=== PATIENT | female | born 1985 | race Two or more races ===

== ENCOUNTER 2018-08-17 20:32 | Emergency (ER) | payer MEDICAID ==
[~2018-08-17] VITALS: Ht 154.9 cm; Wt 69.4 kg
[~2018-08-17 20:32] MED LIST: NOR10T
[2018-08-17 21:33] VITALS: BP 142/99
== END 2018-08-18 05:00 | disposition left against medical advice (07) ==
LOC: ER 20:32
DX: R07.89 Other chest pain (principal); M25.512 Pain in left shoulder; M25.511 Pain in right shoulder; R51 Headache; Z53.21 Procedure and treatment not carried out due to patient leaving prior to being seen by health care provider; V49.9XXA Car occupant (driver) (passenger) injured in unspecified traffic accident, initial encounter; Y93.89 Activity, other specified; Y92.89 Other specified places as the place of occurrence of the external cause; Y99.8 Other external cause status
CPT/HCPCS: 70450; 71045; 72125; 73090

== ENCOUNTER 2018-08-18 10:34 | Emergency (ER) | payer MEDICAID ==
[~2018-08-18] VITALS: Ht 154.9 cm; Wt 72.6 kg
[2018-08-18 13:48] VITALS: BP 140/70
[2018-08-18] MEDS ORDERED: IBUPROFEN 600 MG TAB PO ONE (14:00)
== END 2018-08-18 14:04 | disposition home or self-care (01) ==
LOC: ER 10:34
DX: G89.11 Acute pain due to trauma (principal); M25.512 Pain in left shoulder; R07.89 Other chest pain; M79.602 Pain in left arm; V43.52XA Car driver injured in collision with other type car in traffic accident, initial encounter; Y93.89 Activity, other specified; Y99.8 Other external cause status; Y92.410 Unspecified street and highway as the place of occurrence of the external cause

== ENCOUNTER 2019-01-20 01:38 | Emergency (ER) | payer MEDICAID ==
[~2019-01-20] VITALS: Ht 154.9 cm; Wt 77.1 kg
[2019-01-20 03:03] LABS: Basophils # (auto) 0.1 uL; Eosinophils # (auto) 0.1 uL; Hemoglobin 12.4 g/dL (12.2-16.2); Lymphocytes # (auto) 1.5 uL; Monocytes # (auto) 1.3 uL
[2019-01-20 03:04] LABS: Basophils % (auto) 0.5 % (0.0-2.0); Eosinophils % (auto) 0.5 % (0.0-7.0); Lymphocytes % (auto) 9.2 % (10.0-50.0); Mean Corpuscular Hgb Conc. 31.7 g/dL (32.0-36.0); Neutrophils # (auto) 13.2 uL; Neutrophils % (auto) 81.8 % (37.0-80.0); Nucleated Red Blood Cells % 0.1 %; Platelet Count (auto) 228 10^3/uL (140-450); Red Blood Cells 4.76 10^6/uL (4.0-5.20); Red Cell Distribution Width 16.7 % (11.8-14.3); White Blood Cell 16.1 10^3/uL (4.4-10.8)
[2019-01-20 03:19] LABS: Partial Thromboplastin Time 26.2 sec (23.78-33.04); Prothrombin Time 10.7 sec (9.27-12.13)
[2019-01-20 03:22] LABS: Albumin 3.7 g/dL (3.4-5.0); BUN/Creatinine Ratio 14.1; Calcium 8.2 mg/dL (8.5-10.1); Potassium 3.1 mmol/L (3.5-5.1)
[2019-01-20 03:24] LABS: Bilirubin, Total 0.2 mg/dL (0.2-1.0); Total Protein 6.9 g/dL (6.4-8.2)
[2019-01-20] MEDS: SODIUM CHLORIDE 0.9% 1,000 ML IVB ONE (07:47)
[2019-01-20 11:13] VITALS: BP 106/72
== END 2019-01-20 12:34 | disposition home or self-care (01) ==
LOC: EDBD 01:38 → ER 01:44
DX: N39.0 Urinary tract infection, site not specified (principal); R11.10 Vomiting, unspecified
CPT/HCPCS: 36415; 76830; 76856; 80053; 81002; 81025; 84702; 85025; 85610; 85730; 86850; 86900; 86901; 94761; 96360; 99284; J7030; 96361

== ENCOUNTER 2019-07-11 09:14 | Emergency (ER) | payer MEDICAID ==
[~2019-07-11] VITALS: Ht 154.9 cm; Wt 64.9 kg
[2019-07-11 09:53] VITALS: BP 120/65
== END 2019-07-11 10:24 | disposition left against medical advice (07) ==
LOC: EDBD 09:14 → ER 09:14
DX: R07.89 Other chest pain (principal); Z53.21 Procedure and treatment not carried out due to patient leaving prior to being seen by health care provider; V43.52XA Car driver injured in collision with other type car in traffic accident, initial encounter; Y93.89 Activity, other specified; Y99.8 Other external cause status; Y92.89 Other specified places as the place of occurrence of the external cause
CPT/HCPCS: 71046; 72040

== ENCOUNTER 2025-06-25 18:23 | Emergency (ER) | payer MEDICAID ==
[~2025-06-25] VITALS: Ht 160 cm; Wt 69.2 kg
[~2025-06-25 18:23] MED LIST changes: +NITR-87 PO; -NOR10T
[2025-06-25 18:25] VITALS: BP 144/91; PULSE 98; RESP 16; TEMP 98.4; O2SAT 98
--- NOTE | 2025-06-25 19:40 | DVH ---
CLINICAL INDICATION: injury/pain TECHNIQUE: 3 radiographic views of the right knee were obtained. Comparison: None FINDINGS/IMPRESSION: Appears to be a 3.6 cm ill-defined soft tissue mass in the anterior soft tissues distal femur correla te for palpable abnormality. Consider CT or MRI for further evaluation. Soft tissue swelling is anterior distal femur. No fractures or dislocations.
--- NOTE | 2025-06-25 21:21 | DVH ---
INDICATION: 3.6 cm ill-defined soft tissue mass anterior FEMUR COMPARISON: XY R KNEE 3V XRAY on DOS: 06/25/25 TECHNIQUE: CT of the right was performed without contrast. Volume transverse images were obtained and reconstructed in multiple planes using bone and soft tissue algorithms. CONTRAST: None Radiation Dose Information: CT Dose: CTDI volume is 15.07 mGy. Dose-length product is 888.62 mGy*cm FINDINGS: The alignment is normal. The joint spaces are normal. There is no fracture, dislocation, or focal osseous lesions. No bony abnormalities in the femur. No soft tissue mass. No soft tissue abnormalities to correlate with finding on the left knee x-ray d one same day. No soft tissue mass noted in the quadriceps muscle. IMPRESSION: 1. No soft tissue mass noted in the quadriceps muscle. 2. No soft tissue abnormalities to correlate with finding on the left knee x-ray done same day. 3. No bony abnormalities in the femur. 4. If palpable masses present recommend MRI. 5. Consider repeat AP and lateral right knee to exclude artifact accounting for findings on right kne e x-ray done earlier same day.
--- NOTE | 2025-06-25 21:38 | ED.PDOC ---
Back pain HPI HPI Comments PT PRESENTS TO ER WITH CC OF RIGHT KNEE LACERATION/ PAIN 05/31. PT STATES SHE WAS SLEEPING ON COUCH AND FELL ONTO BROKEN GLASS. NO GLASS NOTED TO WOUND, CMST INTACT. Chief Complaint: Lower Extremity Time Seen by MD: 18:42 Primary Care Provider: NONE Reviewed Notes: Nurses Notes, Medications, Allergies Allergies: Coded Allergies: NO KNOWN ALLERGIES (Unverified , 01/20/19) Home Meds Active Scripts Nitrofurantoin Monohydrate Mac (Macrobid) 100 Mg Cap, 100 MG PO 100 for 5 Days, #10 MG Prov:ZACHARY DEAL MD 11/02/19 Information Source: Patient Mode of Arrival: Ambulatory Past Medical History PAST MEDICAL HISTORY: Denies Surgical History: Denies all surgeries [employer] History: No Pertinent [employer] History Family History Family History: Unknown Social History Smoker: Non-Smoker Drugs: Marijuana Lives In: Home All Other Systems: Reviewed and Negative (see hpi) Physical Exam General Appearance: No Apparent Distress, Normal HEENT: Pharynx Normal Neck: Full Range of Motion, Non-Tender Respiratory: Lungs Clear, No Respiratory Distress, Normal Breath Sounds Cardiovascular: No Murmur, Normal Peripheral Pulses, Regular Rate/Rhythm Breast Exam: Deferred Gastrointestinal: No Organomegaly, Non Tender, No Pulsatile Mass, Normal Bowel Sounds, Soft Genitalia: Deferred Pelvic: Deferred Rectal: Deferred Extremities: Normal capillary refill, Normal range of motion, No pedal edema Musculoskeletal : Location: Right Extremity Location: Knee (Superficial laceration across patella no obvious foreign body bleeding controlled. Tenderness palpated about the knee no noted edema strength sensory motion intact positive pedal pulses) Apperance: Normal Neurologic: Alert, No Motor Deficits, Normal Affect, Normal Mood, No Sensory Deficits Cerebellar Function: Normal Reflexes: Normal, R Knee Skin: Dry, Normal Color, Warm Lymphatic: No Adenopathy Was a procedure done? Was a procedure done?: No Back Pain Differential Dx Differential Diagnosis: Fracture, Musculoskeletal Pain, Strain X-Ray, Labs, Meds, VS Vital Signs Date Time Temp Pulse Resp B/P (MAP) Pulse Ox O2 Delivery O2 Flow Rate FiO2 06/25/25 18:25 98.4 98 16 144/91 98 98.4 X-Ray, Labs, Meds, VS Comment X-ray of knee shows no fractures dislocations or osseous lesions. Does show questionable mass in the distal femur anterior aspect. Cm no noted tenderness in his also no noted foreign body. Recommendation was for a CAT scan CAT scan shows no mass did show crusting a foreign body which is the Band-Aid in the laceration. Patient placed for discharged checked in lobby to discuss results patient check x3 eloped without imaging results however laceration was cleansed dressed with Steri-Strips. Time of 1ST Reevaluation: 18:42 Reevaluation 1ST: Unchanged Time of 2ND Reevaluation: 21:36 Reevaluation 2ND: Improved Patient Education/Counseling: Diagnosis, Treatment, Prognosis, Need For Follow Up Family Education/Counseling: No Family Present SEPSIS Sepsis Screen Date sepsis recognized/suspect: Jun 25, 2025 Time Sepsis recognized/suspect: 1824 Recent Procedure: No On Antibiotic Therapy: No Respiratory Rate >20: No Heart Rate >90: Yes Temp<36 C (96.8 F) or >38.3 C: No SBP <90 or MAP <65 mmHG: No New Acute Mental Status Change: No Is the patient on CPAP, BIPAP,: No Physician Orders R Knee 3v Xray (06/25/25 18:55) Ct R Femur Wo Contrast (06/25/25 19:53) Vital Signs Date Time Temp Pulse Resp B/P (MAP) Pulse Ox O2 Delivery O2 Flow Rate FiO2 06/25/25 18:25 98.4 98 16 144/91 98 98.4 Departure 1 Departure Time of Disposition: 21:35 Impression: Primary Impression: Contusion of knee, right Qualified Codes: S80.01XA - Contusion of right knee, initial encounter Additional Impression: Superficial laceration of knee Disposition: 07 LEFT AWOL/ELOPED Condition: Stable Discharged With: Self Critical Care Note Critical Care Time?: No Stability Stability form required: ZACHARIAH Perez Jun 25, 2025 21:38
== END 2025-06-25 21:45 | disposition left against medical advice (07) ==
LOC: ER 18:23
DX: S81.019A Laceration without foreign body, unspecified knee, initial encounter (principal); S80.01XA Contusion of right knee, initial encounter; W19.XXXA Unspecified fall, initial encounter; Y93.89 Activity, other specified; Y92.89 Other specified places as the place of occurrence of the external cause; Y99.8 Other external cause status
CPT/HCPCS: 73562; 73700